=== PATIENT | female | born 1970 | race Caucasian/White ===

== ENCOUNTER 2016-08-08 08:50 | Emergency (ER) | payer OTHER ==
--- NOTE | ~2016-08-08 | CR72 ---
[facility]. [facility] A Service of [facility] & [facility] RADIOLOGY TEXT RESULTS PATIENT: JULIET SCRUGGS LOCATION: SED : 74 UNIT #: [id number] AGE: [address]: Marylu Brower MD SEX: F ORDER DR: [id number] [place] [id number] E MR#: [id number] Acc #: [id number] NAME: JULIET SCRUGGS : 1970 SEX: F STUDY DATE/TIME: 08/08/2016 10:02 UNIT: SED ROOM: STUDY DESCRIPTION: CR Chest Single View Portable Attending Physician: Marylu Brower M.D. Ordering Physician: Marylu Brower M.D. Primary Care Physician: Maryanne Ellis M.D. MEDICAL IMAGING REPORT This report is preliminary unless electronic signature is present. EXAM Chest portable, 08/08 INDICTIONS Chest pain that started last night. FINDINGS A single AP portable view of the chest shows both lungs to be clear. The heart is normal in size. The mediastinal contour is normal. No significant bone abnormalities are seen. IMPRESSION Normal portable chest. Dictated by... Jorge Luis Renee Jr., M.D. THIS IS AN ELECTRONICALLY VERIFIED REPORT Jorge Luis Renee Jr., M.D. at 08/08/2016 3:38 PM JOHNNIE/chava TD: 08/08/2016 14:34 JOB #: [id number] MEDICAL IMAGING REPORT Page 1 of 1
--- NOTE | ~2016-08-08 | EKG ---
PATIENT: JULIET SCRUGGS UNIT #: [id number] Ventricular Rate: 60 BPM Atrial Rate: 60 BPM P-R Interval: 170 ms QRS Duration: 84 ms Q-T Interval: 398 ms QTC Calculation(Bezet): 398 ms P [place]: 52 degrees Calculated R [place]: 54 degrees Calculated T [place]: 47 degrees Diagnosis Line: Normal sinus rhythm Diagnosis Line: Normal ECG Diagnosis Line: Diagnosis Line: Confirmed by DEVORAH MULLEN MD ([id number]) on Diagnosis Line: 08/10/2016 4:48:46 PM INTERPRETING MD: SEBAS DENISE
[~2016-08-08 08:50] MED LIST: ALPRAZOLAM PO; AMITRYPTYLINE; AMOXICILLIN500 M1 PO; BENTYL20 MG PO; FAMOTIDINE PO; HCTZ PO; IBUPROFEN600 MG PO; KEFLEX500 MG PO; KLONOPIN0.5 MG PO; LISINOPRIL10 MG PO; MACROBID100 M1 PO; NEXIUM PO; PHENERGAN25 MG; PREDNISONE PO; PREDNISONE10 MG PO; TOFRANIL PO; VALIUM2 MG PO; ZOFRAN ODT4 MG PO
[2016-08-08 09:27] LABS: BASOPHIL# 0.1 X10e3 (0-0.3); BASOPHIL% 0.8 % (0-2.5); EOSINOPHIL# 0.3 X10e3 (0-0.7); EOSINOPHIL% 4.3 % (0.0-7.0); HEMATOCRIT 40.6 % (35.0-45.0); HEMOGLOBIN 13.5 gm/dL (12.0-16.0); LYMPHOCYTE# 1.7 X10e3 (1.0-3.5); MEAN CELL VOLUME 91.7 FL (83-96); MEAN CORPUSCULAR HEMOGLOBIN 30.4 PG (28-34); MEAN CORPUSCULAR HGB CONC 33.2 g/dL (30-36); MEAN PLATELET VOLUME 8.2 FL (6.5-11.5); MONOCYTE# 0.5 X10e3 (0-1.0); MONOCYTE% 6.2 % (3.0-12.0); NEUTROPHIL# 4.9 X10e3 (1.5-7.1); NEUTROPHIL% 65.7 % (40-75); PLATELET COUNT 229 X10e3 (140-420); RED BLOOD COUNT 4.43 X10e (3.90-5.30); RED CELL DISTRIBUTION WIDTH 13.2 % (11.0-15.5); WHITE BLOOD COUNT 7.4 X10e3 (4.0-10.5)
[2016-08-08 09:29] LABS: DIFF IND NO
[2016-08-08 09:42] LABS: POC - CKMB <1.0 ng/mL (0.0-7.9); POC - TROPONIN <0.05 ng/mL (<=0.05)
[2016-08-08 09:45] LABS: PROTHROMBIN TIME (PATIENT) 11.4 SECONDS (9.5-12.4)
[2016-08-08 09:48] LABS: BILIRUBIN, DIRECT 0.1 mg/dL (0.0-0.2); BILIRUBIN,INDIRECT 0.6 mg/dL (0.0-0.9); BILIRUBIN,TOTAL 0.7 mg/dL (0.2-2.0); CALCIUM SERUM 8.8 mg/dL (8.4-10.2); CREATININE SERUM 0.6 mg/dL (0.6-1.4); GLOM FILT RATE Estimated 111.6 mL/min (>60); POTASSIUM 3.8 mmol/L (3.5-5.1); PROTEIN TOTAL SERUM 6.7 g/dL (6.0-8.3)
[2016-08-08 09:53] LABS: PARTIAL THROMBOPLASTIN TIME 30.2 SECONDS (25.6-38.1)
[2016-08-08 11:03] LABS: POC - CKMB <1.0 ng/mL (0.0-7.9)
[2016-08-08 11:04] LABS: POC - TROPONIN <0.05 ng/mL (<=0.05)
== END 2016-08-08 11:26 | disposition home or self-care (01) ==
LOC: SED 08:50
PROVIDERS: Student in an Organized Health Care Education/Training Program
DX: R07.89 Other chest pain (principal); R11.0 Nausea; Z90.49 Acquired absence of other specified parts of digestive tract; F17.200 Nicotine dependence, unspecified, uncomplicated; Z88.8 Allergy status to other drugs, medicaments and biological substances; Z88.5 Allergy status to narcotic agent; Z91.040 Latex allergy status; Z79.899 Other long term (current) drug therapy
CPT/HCPCS: 36415; 71010; 80048; 80076; 82553; 83880; 84484; 84703; 85025; 85610; 85730; 93005; 96374; 96375; 99285; C9113; J2405